=== PATIENT | male | born 1985 | race Caucasian/White ===

== ENCOUNTER 2020-07-27 11:40 | Emergency (ER) | payer SELFPAY ==
[~2020-07-27] VITALS: Ht 185.4 cm; Wt 131.5 kg
[2020-07-27 11:54] VITALS: BP 159/102
[2020-07-27] MEDS ORDERED: KETOROLAC 60 MG/2 ML VIAL IM ONE (12:35)
[2020-07-27] MEDS ORDERED: HYDROcodone/APAP 5/325 MG 1 TAB TAB PO ONE (12:35)
[2020-07-27] MEDS ORDERED: LIDOCAINE MPF 1% 10 MG/ML VIAL INJ ONE (12:35)
[2020-07-27 13:48] VITALS: BP 148/83
== END 2020-07-27 13:45 | disposition home or self-care (01) ==
LOC: MED 11:40
DX: M54.5 Low back pain (principal); I10 Essential (primary) hypertension; Z90.49 Acquired absence of other specified parts of digestive tract; X50.9XXA Other and unspecified overexertion or strenuous movements or postures, initial encounter; Y93.89 Activity, other specified; Y92.89 Other specified places as the place of occurrence of the external cause; Y99.8 Other external cause status
CPT/HCPCS: 20552; 96372; 99284; J1885; J2001